=== PATIENT | male | born 1990 | race Two or more races ===

== ENCOUNTER 2024-02-28 14:44 | Emergency (ER) | payer MEDICAID ==
[~2024-02-28] VITALS: Ht 172.7 cm; Wt 70.3 kg
[2024-02-28 18:47] VITALS: BP 138/81; PULSE 74; RESP 12; TEMP 99.4; O2SAT 100
[2024-02-28] MEDS: TETANUS-DIPTH-ACEL PERTUSSIS 0.5ML SYR Tdap IM ONE (20:03)
[2024-02-28] MEDS: cefTRIAXone SOD 1,000 MG VL IM ONE (20:04)
[2024-02-28] MEDS ORDERED: AMOX875T4 PO (20:12)
[2024-02-28] MEDS ORDERED: IBUP-1456 PO (20:12)
[2024-02-28] MEDS: KETOROLAC TROMETH 60MG/2ML VIAL IM ONE (20:33)
== END 2024-02-28 21:20 | disposition home or self-care (01) ==
LOC: ER 14:44
DX: S93.492A Sprain of other ligament of left ankle, initial encounter (principal); S51.831A Puncture wound without foreign body of right forearm, initial encounter; F15.90 Other stimulant use, unspecified, uncomplicated; W54.0XXA Bitten by dog, initial encounter; Y93.89 Activity, other specified; Y92.89 Other specified places as the place of occurrence of the external cause; Y99.8 Other external cause status
CPT/HCPCS: 12001; 73600; 90471; 90715; 96372; 99284; J0696; J1885